=== PATIENT | female | born 1945 | race Caucasian/White ===

== ENCOUNTER 2020-10-28 07:47 | Outpatient (REF) | payer MEDICARE, SELFPAY | END 2020-10-28 07:48 | disposition home or self-care (01) | LOC: HO.LAB 07:47 | PROVIDERS: PCP Internal Medicine; Visit Provider Internal Medicine | DX: E03.9 Hypothyroidism, unspecified (principal) | CPT/HCPCS: 36415; 84443 ==

== ENCOUNTER 2021-12-24 08:01 | Outpatient (REF) | payer MEDICARE, SELFPAY ==
[2021-12-24 08:19] LABS: MANUAL DIFF FLAG NO
[2021-12-24 09:04] LABS: Basophils Absolute Auto 0.1 X10*3/uL (0.0-0.2); Basophils Percent Auto 0.6 % (0-2); Eosinophils Absolute Auto 0.5 X10*3/uL (0.0-0.4); Eosinophils Percent Auto 5.5 % (0-4); Hematocrit 43.3 % (37.0-47.0); Hemoglobin 13.8 g/dl (12.0-16.0); Imm Gran Abs Auto 0.03 X10*3/uL (0.00-0.03); Imm Gran Pct Auto 0.3 % (0.0-0.4); Lymphocytes Absolute Auto 2.6 X10*3/uL (1.2-4.9); Lymphocytes Percent Auto 27.4 % (20-40); Mean Corpuscular HGB Conc 31.9 g/dl (31.0-35.0); Mean Corpuscular Hemoglobin 27.8 pg (27.0-33.0); Mean Corpuscular Volume 87.3 fL (80.0-98.0); Mean Platelet Volume 9.3 fL (9.4-12.3); Monocytes Absolute Auto 0.9 X10*3/uL (0.1-1.2); Monocytes Percent Auto 9.8 % (2-11); Neutrophils Absolute Auto 5.3 x10*3/uL (2.0-8.3); Neutrophils Percent Auto 56.4 % (45-73); Platelet Count 222 X10*3/uL (160-400); Red Blood Count 4.96 X10*6/uL (4.20-5.50); Red Cell Distribution Width 13.1 % (11.0-16.0); White Blood Count 9.3 X10*3/uL (4.8-10.8)
[2021-12-24 09:37] LABS: Alanine Aminotransferase 13 U/L (0-31); Albumin Level 4.1 g/dL (3.5-5.0); Alkaline Phosphatase 82 U/L (39-117); Anion Gap 16 (12-20); Aspartate Amino Transferase 15 U/L (5-31); Bilirubin Total 0.3 mg/dL (0.0-1.0); Blood Urea Nitrogen 17 mg/dL (9-16); Calcium 9.7 mg/dL (8.4-10.2); Carbon Dioxide 27 mmol/L (22-29); Chloride 105 mmol/L (96-108); Cholesterol 216 mg/dL; Estimated Glomerular Filt Rate > 60; Glucose Fasting 82 mg/dL (60-99); HDL Cholesterol 39 mg/dL; LDL Cholesterol Calculated 120 mg/dl; Potassium 4.8 mmol/L (3.3-5.1); Sodium 143 mmol/L (135-145); Triglycerides 287 mg/dL
[2021-12-24 09:50] LABS: Thyroid Stimulating Hormone 1.02 uIU/mL (0.32-4.0)
== END 2021-12-24 08:02 | disposition home or self-care (01) ==
LOC: HO.LAB 08:01
PROVIDERS: PCP Internal Medicine; Visit Provider Internal Medicine
DX: Z00.00 Encounter for general adult medical examination without abnormal findings (principal); Z13.0 Encounter for screening for diseases of the blood and blood-forming organs and certain disorders involving the immune mechanism
CPT/HCPCS: 36415; 80053; 80061; 84443; 85025

== ENCOUNTER 2022-08-03 09:30 | Outpatient (REF) | payer MEDICARE, SELFPAY ==
[2022-08-03 09:41] LABS: MANUAL DIFF FLAG NO
[2022-08-03 10:04] LABS: Basophils Percent Auto 0.4 % (0-2); Eosinophils Absolute Auto 0.4 X10*3/uL (0.0-0.4); Eosinophils Percent Auto 4.3 % (0-4); Hematocrit 49.1 % (37.0-47.0); Hemoglobin 15.4 g/dl (12.0-16.0); Imm Gran Abs Auto 0.02 X10*3/uL (0.00-0.03); Imm Gran Pct Auto 0.2 % (0.0-0.4); Lymphocytes Absolute Auto 2.1 X10*3/uL (1.2-4.9); Lymphocytes Percent Auto 22.2 % (20-40); Mean Corpuscular HGB Conc 31.4 g/dl (31.0-35.0); Mean Corpuscular Hemoglobin 26.2 pg (27.0-33.0); Mean Corpuscular Volume 83.6 fL (80.0-98.0); Mean Platelet Volume 8.6 fL (9.4-12.3); Monocytes Absolute Auto 0.9 X10*3/uL (0.1-1.2); Monocytes Percent Auto 9.5 % (2-11); Neutrophils Absolute Auto 5.9 x10*3/uL (2.0-8.3); Neutrophils Percent Auto 63.4 % (45-73); Platelet Count 221 X10*3/uL (160-400); Red Blood Count 5.87 X10*6/uL (4.20-5.50); Red Cell Distribution Width 14.1 % (11.0-16.0); White Blood Count 9.4 X10*3/uL (4.8-10.8)
[2022-08-03 10:50] LABS: Alanine Aminotransferase 13 U/L (0-31); Albumin Level 4.4 g/dL (3.5-5.0); Alkaline Phosphatase 107 U/L (39-117); Anion Gap 13 (12-20); Aspartate Amino Transferase 15 U/L (5-31); Bilirubin Total 0.9 mg/dL (0.0-1.0); Blood Urea Nitrogen 13 mg/dL (9-16); Calcium 10.3 mg/dL (8.4-10.2); Carbon Dioxide 29 mmol/L (22-29); Chloride 105 mmol/L (96-108); Cholesterol 236 mg/dL; Estimated Glomerular Filt Rate > 60; Glucose Fasting 94 mg/dL (60-99); HDL Cholesterol 45 mg/dL; LDL Cholesterol Calculated 142 mg/dl; Potassium 4.9 mmol/L (3.3-5.1); Sodium 142 mmol/L (135-145); Total Protein 8.5 g/dL (6.5-8.0); Triglycerides 246 mg/dL
[2022-08-03 11:06] LABS: Thyroid Stimulating Hormone 1.06 uIU/mL (0.32-4.0)
== END 2022-08-03 09:31 | disposition home or self-care (01) ==
LOC: HO.LAB 09:30
PROVIDERS: PCP Internal Medicine; Visit Provider Internal Medicine
DX: E03.9 Hypothyroidism, unspecified (principal); D64.9 Anemia, unspecified; N28.9 Disorder of kidney and ureter, unspecified; E78.5 Hyperlipidemia, unspecified
CPT/HCPCS: 36415; 80053; 80061; 84443; 85025

== ENCOUNTER 2023-02-10 10:40 | Outpatient (AMB) | payer MEDICARE, SELFPAY ==
[2023-02-10 10:43] VITALS: BP 150/70; PULSE 67; O2SAT 97; BMI 26.5
--- NOTE | 2023-02-10 10:43 | A.OFFPC_ITS ---
Vital Signs 02/10/23 10:43 Height 5 ft 2 in Weight 145 lb BMI 26.5 BP 150/70 H Blood Pressure Location Lt brachial Position Sitting Pulse 67 Pulse Source Pulse Oximeter Pulse Oximetry (%) 97 Oxygen Delivery Method Room Air Intake Visit Reasons: PE Program Engineer Required: No Voice And Data Technician: Not Required per policy Accompanied by: Self / Same As Patient Allergies No Known Allergies Allergy (Verified 02/10/23 10:43) Medication List - Last Reconciled 02/10/23 by Jd Umanzor MD atenolol 25 mg PO BID levothyroxine (Synthroid) 100 mcg PO QAM tobramycin 0.3% 1 drp ophthalmic (eye) Q4H tramadol 50 mg PO Q6H PRN Tobacco use date assessed: 04/14/22 Fall risk assessment: 1 Fall in past year Last assessed Fall Risk: 02/10/23 Dental Screening Dental Screen Date: 02/10/23 Did you have a dental visit in the last 12 months?: No Did you have a dental problem in the last 6 months where you did not have access to dental care?: No Was dental information given to patient?: Patient has dentist HPI PE HPI Details HTN Hypothyroidism; stable PFSH Medical History Hypothyroidism Hypertension Surgical History History of thumb surgery Hx of elbow surgery Family History Father No problems noted. Mother No problems noted. Social History Housing: House Alcohol intake: never Patient Tobacco Use Status: Former Tobacco user Tobacco use type: Cigarette e-Cigarette/Vaping Use: Never Used Second Hand Smoke Exposure: No service: No Current occupational status: retired Cognitive needs: Yes Hearing needs: No Vision needs: No Questionnaire PHQ-9 Over the last 2 weeks, how often have you been bothered by any of the following problems? 1. Little interest or pleasure in doing things: not at all 2. Feeling down, depressed, or hopeless: not at all 3. Trouble falling or staying asleep, or sleeping too much: not at all 4. Feeling tired or having little energy: not at all 5. Poor appetite or overeating: not at all 6. Feeling bad about yourself - or that you are a failure or have let yourself or your family down: not at all 7. Trouble concentrating on things, such as reading the newspaper or watching television: not at all 8. Moving or speaking so slowly that other people could have noticed. Or the opposite - being so fidgety or restless that you have been moving around a lot more than usual: not at all 9. Thoughts that you would be better off or of hurting yourself in some way: not at all Total score: 0 Depression Screening Interpretation: Negative Depression Screening Done: Yes 18305 - PHQ-9 Billing: Yes Source: Developed by Drs. Vinnie Garcia, Kathleen Carrillo, Matthew Leong and colleagues, with an educational franklyn from [employer]. Thrive Questionnaire Date Thrive assessed: 04/14/22 AUDIT C Alcohol Use Questionnaire (AUDIT-C) 1. How often do you have a drink containing alcohol?: Never Total Score: 0 Score Reviewed/Action Taken: Yes CHAPITO-7 AMB Questionnaire CHAPITO-7 Date CHAPITO - 7 assessed: 02/10/23 Feeling nervous, anxious, or on edge: 0 = Not at all Not being able to stop or control worryin = Not at all Worrying too much about different things: 0 = Not at all Trouble relaxin = Not at all Being so restless that it is hard to sit still: 0 = Not at all Becoming easily annoyed or irritable: 0 = Not at all Feeling afraid as if something awful might happen: 0 = Not at all Total CHAPITO-7 score (0-4 normal; 5-9 mild; 10-14 moderate; 15-21 severe): 0 Source: Developed by Drs. Vinnie Garcia, Kathleen Carrillo, Matthew Leong and colleagues, with an educational franklyn from [employer]. CHAPITO-7 Assessment Billing CHAPITO-7 Assessment Tool: CHAPITO-7 Assessment 21685 Review of Systems Const Denies chills, Denies fatigue, Denies headache(s) and Denies weight loss Eyes Denies change in vision, Denies diplopia and Denies eye pain ENT Denies vertigo, Denies dizziness, Denies headache(s) and Denies nasal discharge Card Denies chest pain, Denies rapid heart rate and Denies dyspnea on exertion Resp Denies chest congestion, Denies cough, Denies pain with cough and Denies dyspnea on exertion GI Denies abdominal pain, Denies hematochezia and Denies change in bowel habits Musc Denies myalgias, Denies arthralgias and Denies joint swelling Skin/Breast Denies lesions and Denies unusual bruising Neuro Denies vertigo, Denies dizziness, Denies headache(s) and Denies focal weakness Endo Denies fatigue Physical exam (Primary Care) Vital Signs: Last Vital Signs Pulse 67 02/10/23 10:43 BP 150/70 H 02/10/23 10:43 Pulse Ox 97 02/10/23 10:43 Oxygen Delivery Method Room Air 02/10/23 10:43 BMI result Body Mass Index 26.5 Tobacco/Smoking Status: Tobacco use Status Tobacco use date assessed 04/14/22 02/10/23 10:44 Patient Tobacco Use Status Former Tobacco user 02/10/23 10:44 Tobacco use type Cigarette 02/10/23 10:44 e-Cigarette/Vaping Use Never Used 02/10/23 10:44 PHQ-9: PHQ-9 Score PHQ-9: Total score 0 02/10/23 10:54 Depression Screening Interpretation: Negative Thrive Assessment: Date of Thrive Assessment Date Thrive assessed 04/14/22 02/10/23 10:44 Const General: cooperative, healthy appearing and no acute distress Orientation/consciousness: oriented to person, oriented to place and oriented to time [facility] Head: Yes normal to inspection, Yes normocephalic and Yes atraumatic Mouth: Normal oral and palatal mucosa present and tongue normal Throat: Yes posterior oropharynx normal and Yes uvula midline Eyes General: appearance normal, both eyes and all related structures Neck Neck: Yes normal visual inspection, Yes full ROM and Yes no lymphadenopathy Thyroid: Thyroid normal Carotids: normal carotid upstroke Chest Chest palpation & inspection: normal inspection of the chest Resp Effort & Inspection: normal respiratory effort and able to speak in complete sentences Auscultation: clear to auscultation bilaterally Cardio Jugular venous distension: no JVD Palpation: normal PMI Rate: regular rate Rhythm: regular rhythm Heart sounds: S1 normal heart sound present and S2 normal heart sound present GI Inspection: Yes normal to inspection Palpation (GI): Soft to palpation and No hepatosplenomegaly present Auscultation: normal bowel sounds General: Yes no CVA tenderness Back/Spine/Pelvis Back: no CVA tenderness Skin General skin exam: no rashes or lesions noted Neuro General: oriented to person, oriented to place and oriented to time Extrem General: Yes normal to inspection and Yes full ROM Assessment and Plan Assessment & Plan (1) Physical exam: Code(s): Z00.00 - Encounter for general adult medical examination without abnormal findings Plan: stable; do labs (2) Hypothyroidism: Code(s): E03.9 - Hypothyroidism, unspecified Plan: stable; labs (3) Hypertension: Code(s): I10 - Essential (primary) hypertension Plan: same rx Orders: Orders Thyroid Stimulating Hormone Today E03.9 - Hypothyroidism, unspecified Coding Level of Care Code Est Pt Prev Care >65y(73160) Diagnoses Physical exam Z00.00 Hypothyroidism E03.9 Hypertension I10 Additional Codes CHAPITO-7 Assessment Billing - CHAPITO-7 Assessment Tool: CHAPITO-7 Assessment 94226 ([id number])
== END 2023-02-10 11:53 | disposition home or self-care (01) ==
PROVIDERS: PCP Internal Medicine; Visit Provider Internal Medicine
DX: Z00.00 Encounter for general adult medical examination without abnormal findings (principal); E03.9 Hypothyroidism, unspecified; I10 Essential (primary) hypertension
CPT/HCPCS: 99397

== ENCOUNTER 2023-05-05 09:03 | Outpatient (REF) | payer MEDICARE, SELFPAY ==
[2023-05-05 11:03] LABS: Thyroid Stimulating Hormone 0.92 uIU/mL (0.32-4.0)
== END 2023-05-05 09:04 | disposition home or self-care (01) ==
LOC: HO.LAB 09:03
PROVIDERS: PCP Internal Medicine; Visit Provider Internal Medicine
DX: E03.9 Hypothyroidism, unspecified (principal)
CPT/HCPCS: 36415; 84443

== ENCOUNTER 2023-11-03 10:55 | Outpatient (AMB) | payer MEDICARE, SELFPAY ==
[2023-11-03 10:57] VITALS: BP 142/84; PULSE 81; O2SAT 94; BMI 25.4
--- NOTE | 2023-11-03 10:57 | MHC.PC.OV ---
Vital Signs 11/03/23 10:57 Height 5 ft 2 in Weight 139 lb BMI 25.4 BP 142/84 H Blood Pressure Location Lt brachial Position Sitting Pulse 81 Pulse Source Pulse Oximeter Pulse Oximetry (%) 94 Oxygen Delivery Method Room Air Intake Visit Reasons: Cataract lt eye 11/08, rt eye 12/06 Fat Purification Worker Required: No Accompanied by: Self / Same As Patient Allergies No Known Allergies Allergy (Verified 11/03/23 10:57) Medication List - Last Reconciled 11/03/23 by Jd Umanzor MD atenolol 25 mg PO BID levothyroxine (Synthroid) 100 mcg PO QAM tobramycin 0.3% 1 drp ophthalmic (eye) Q4H tramadol 50 mg PO Q6H PRN Tobacco use date assessed: 11/03/23 Fall risk assessment: No Falls in past year Last assessed Fall Risk: 11/03/23 Dental Screening Dental Screen Date: 02/10/23 HPI Cataract lt eye 11/08, rt eye 12/06 HPI Details having bilateral cataract repairs; has controlled hypertension and hypothyroidism; no history of CAD PFSH Medical History Hypothyroidism Hypertension Surgical History History of thumb surgery Hx of elbow surgery Family History Father No problems noted. Mother No problems noted. Social History Housing: House Alcohol intake: never Patient Tobacco Use Status: Former Tobacco user Tobacco use type: Cigarette e-Cigarette/Vaping Use: Never Used Second Hand Smoke Exposure: No service: No Current occupational status: retired Cognitive needs: Yes Hearing needs: No Vision needs: No Questionnaire PHQ-9 Over the last 2 weeks, how often have you been bothered by any of the following problems? 1. Little interest or pleasure in doing things: not at all 2. Feeling down, depressed, or hopeless: not at all 3. Trouble falling or staying asleep, or sleeping too much: not at all 4. Feeling tired or having little energy: not at all 5. Poor appetite or overeating: not at all 6. Feeling bad about yourself - or that you are a failure or have let yourself or your family down: not at all 7. Trouble concentrating on things, such as reading the newspaper or watching television: not at all 8. Moving or speaking so slowly that other people could have noticed. Or the opposite - being so fidgety or restless that you have been moving around a lot more than usual: not at all 9. Thoughts that you would be better off or of hurting yourself in some way: not at all Total score: 0 Depression Screening Interpretation: Negative Depression Screening Done: Yes 76756 - PHQ-9 Billing: Yes Source: Developed by Drs. Vinnie Garcia, Kathleen Carrillo, Matthew Leong and colleagues, with an educational franklyn from [employer]. Thrive Questionnaire Date Thrive assessed: 11/03/23 I am a: Patient What is your living situation today?: I have a steady place to live THRIVE Score: 0 AUDIT C Alcohol Use Questionnaire (AUDIT-C) 1. How often do you have a drink containing alcohol?: Never Total Score: 0 Score Reviewed/Action Taken: Yes CHAPITO-7 AMB Questionnaire CHAPITO-7 Date CHAPITO - 7 assessed: 11/03/23 Feeling nervous, anxious, or on edge: 0 = Not at all Not being able to stop or control worryin = Not at all Worrying too much about different things: 0 = Not at all Trouble relaxin = Not at all Being so restless that it is hard to sit still: 0 = Not at all Becoming easily annoyed or irritable: 0 = Not at all Feeling afraid as if something awful might happen: 0 = Not at all Total CHAPITO-7 score (0-4 normal; 5-9 mild; 10-14 moderate; 15-21 severe): 0 Source: Developed by Drs. Vinnie Garcia, Kathleen Carrillo, Matthew Leong and colleagues, with an educational franklyn from [employer]. CHAPITO-7 Assessment Billing CHAPITO-7 Assessment Tool: CHAPITO-7 Assessment [id number] Review of Systems Const Denies chills, Denies fatigue, Denies headache(s) and Denies weight loss Eyes Denies change in vision, Denies diplopia and Denies eye pain ENT Denies vertigo, Denies dizziness, Denies headache(s) and Denies nasal discharge Card Denies chest pain, Denies rapid heart rate and Denies dyspnea on exertion Resp Denies chest congestion, Denies cough, Denies pain with cough and Denies dyspnea on exertion GI Denies abdominal pain, Denies hematochezia and Denies change in bowel habits Musc Denies myalgias, Denies arthralgias and Denies joint swelling Skin/Breast Denies lesions and Denies unusual bruising Neuro Denies vertigo, Denies dizziness, Denies headache(s) and Denies focal weakness Endo Denies fatigue Physical exam (Primary Care) Vital Signs: Last Vital Signs Pulse 81 11/03/23 10:57 BP 142/84 H 11/03/23 10:57 Pulse Ox 94 11/03/23 10:57 Oxygen Delivery Method Room Air 11/03/23 10:57 BMI result Body Mass Index 25.4 Tobacco/Smoking Status: Tobacco use Status Tobacco use date assessed 11/03/23 11/03/23 11:03 Patient Tobacco Use Status Former Tobacco user 11/03/23 11:03 Tobacco use type Cigarette 11/03/23 11:03 e-Cigarette/Vaping Use Never Used 11/03/23 11:03 PHQ-9: PHQ-9 Score PHQ-9: Total score 0 11/03/23 11:03 Depression Screening Interpretation: Negative Thrive Assessment: Date of Thrive Assessment Date Thrive assessed 11/03/23 11/03/23 11:03 Const General: cooperative, healthy appearing and no acute distress Orientation/consciousness: oriented to person, oriented to place and oriented to time [facility] [place] Head: Yes normal to inspection, Yes normocephalic and Yes atraumatic Mouth: Normal oral and palatal mucosa present and tongue normal Throat: Yes posterior oropharynx normal and Yes uvula midline Eyes General: appearance normal, both eyes and all related structures Neck Neck: Yes normal visual inspection, Yes full ROM and Yes no lymphadenopathy Thyroid: Thyroid normal Carotids: normal carotid upstroke Chest Chest palpation & inspection: normal inspection of the chest Resp Effort & Inspection: normal respiratory effort and able to speak in complete sentences Auscultation: clear to auscultation bilaterally Cardio Jugular venous distension: no JVD Palpation: normal PMI Rate: regular rate Rhythm: regular rhythm Heart sounds: S1 normal heart sound present and S2 normal heart sound present GI Inspection: Yes normal to inspection Palpation (GI): Soft to palpation and No hepatosplenomegaly present Auscultation: normal bowel sounds General: Yes no CVA tenderness Back/Spine/Pelvis Back: no CVA tenderness Skin General skin exam: no rashes or lesions noted Neuro General: oriented to person, oriented to place and oriented to time Extrem General: Yes normal to inspection and Yes full ROM Assessment and Plan Assessment & Plan (1) Preop exam for internal medicine: Code(s): Z01.818 - Encounter for other preprocedural examination Plan: low risk of cardiovascular complications; cleared for surgery (2) Hypothyroidism: Code(s): E03.9 - Hypothyroidism, unspecified Plan: stable; same rx (3) Hypertension: Code(s): I10 - Essential (primary) hypertension Plan: stable; same rx Coding Level of Care Code Est Pt Level 4 (34625) Diagnoses Preop exam for internal medicine Z01.818 Hypothyroidism E03.9 Hypertension I10 Additional Codes CHAPITO-7 Assessment Billing - CHAPITO-7 Assessment Tool: CHAPITO-7 Assessment 14888 ([id number])
== END 2023-11-03 12:33 | disposition home or self-care (01) ==
PROVIDERS: PCP Internal Medicine; Visit Provider Internal Medicine
DX: Z01.818 Encounter for other preprocedural examination (principal); E03.9 Hypothyroidism, unspecified; I10 Essential (primary) hypertension
CPT/HCPCS: 99214

== ENCOUNTER 2024-02-22 09:02 | Outpatient (AMB) | payer MEDICARE, SELFPAY ==
--- NOTE | 2024-02-22 09:05 | MHC.PC.OV ---
Vital Signs 02/22/24 09:06 Height 5 ft 2 in Weight 134 lb 4 oz BMI 24.6 BP 130/80 Blood Pressure Location Lt brachial Position Sitting Pulse 72 Pulse Source Pulse Oximeter Pulse Oximetry (%) 96 Oxygen Delivery Method Room Air Intake Visit Reasons: Annual exam Intake Note: Patient is here today for a physical. Wheel Cutter Required: No Correctional Substance Abuse Counselor: Not Required per policy Accompanied by: Self / Same As Patient Allergies No Known Allergies Allergy (Verified 02/22/24 09:06) Medication List - Last Reconciled 02/22/24 by Jd Umanzor MD atenolol 25 mg PO BID levothyroxine (Synthroid) 100 mcg PO QAM tobramycin 0.3% 1 drp ophthalmic (eye) Q4H tramadol 50 mg PO Q6H PRN Tobacco use date assessed: 02/22/24 Fall risk assessment: No Falls in past year Last assessed Fall Risk: 02/22/24 Dental Screening Dental Screen Date: 02/22/24 Did you have a dental visit in the last 12 months?: Yes Did you have a dental problem in the last 6 months where you did not have access to dental care?: No Was dental information given to patient?: Patient has dentist HPI Annual exam HPI Details hypertension and hypothyroidism on rx; doing well; compliant [facility] Medical History (Updated 11/03/23 @ 12:07 by Jd Umanzor MD) Hypothyroidism Hypertension Surgical History (Updated 02/22/24 @ 09:10 by LARA Frazier) History of cataract surgery History of thumb surgery Hx of elbow surgery Family History Father No problems noted. Mother No problems noted. Social History Housing: House Alcohol intake: never Patient Tobacco Use Status: Former Tobacco user Tobacco use type: Cigarette e-Cigarette/Vaping Use: Never Used Second Hand Smoke Exposure: No service: No Current occupational status: retired Cognitive needs: Yes (Cane) Hearing needs: No Vision needs: No Questionnaire Thrive Questionnaire Date Thrive assessed: 11/03/23 CHAPITO-7 AMB Questionnaire CHAPITO-7 Date CHAPITO - 7 assessed: 11/03/23 Source: Developed by Drs. Vinnie LKathleen Miller, Matthew Leong and colleagues, with an educational franklyn from [employer]. Review of Systems Const Denies chills, Denies fatigue, Denies headache(s) and Denies weight loss Eyes Denies change in vision, Denies diplopia and Denies eye pain ENT Denies vertigo, Denies dizziness, Denies headache(s) and Denies nasal discharge Card Denies chest pain, Denies rapid heart rate and Denies dyspnea on exertion Resp Denies chest congestion, Denies cough, Denies pain with cough and Denies dyspnea on exertion GI Denies abdominal pain, Denies hematochezia and Denies change in bowel habits Musc Denies myalgias, Denies arthralgias and Denies joint swelling Skin/Breast Denies lesions and Denies unusual bruising Neuro Denies vertigo, Denies dizziness, Denies headache(s) and Denies focal weakness Endo Denies fatigue Physical exam (Primary Care) Vital Signs: Last Vital Signs Pulse 72 02/22/24 09:06 BP 130/80 02/22/24 09:06 Pulse Ox 96 02/22/24 09:06 Oxygen Delivery Method Room Air 02/22/24 09:06 BMI result Body Mass Index 24.6 Tobacco/Smoking Status: Tobacco use Status Tobacco use date assessed 02/22/24 02/22/24 09:11 Patient Tobacco Use Status Former Tobacco user 02/22/24 09:11 Tobacco use type Cigarette 02/22/24 09:11 e-Cigarette/Vaping Use Never Used 02/22/24 09:11 Thrive Assessment: Date of Thrive Assessment Date Thrive assessed 11/03/23 02/22/24 09:11 Const General: cooperative, healthy appearing and no acute distress Orientation/consciousness: oriented to person, oriented to place and oriented to time [facility] Head: Yes normal to inspection, Yes normocephalic and Yes atraumatic Mouth: Normal oral and palatal mucosa present and tongue normal Throat: Yes posterior oropharynx normal and Yes uvula midline Eyes General: appearance normal, both eyes and all related structures Neck Neck: Yes normal visual inspection, Yes full ROM and Yes no lymphadenopathy Thyroid: Thyroid normal Carotids: normal carotid upstroke Chest Chest palpation & inspection: normal inspection of the chest Resp Effort & Inspection: normal respiratory effort and able to speak in complete sentences Auscultation: clear to auscultation bilaterally Cardio Jugular venous distension: no JVD Palpation: normal PMI Rate: regular rate Rhythm: regular rhythm Heart sounds: S1 normal heart sound present and S2 normal heart sound present GI Inspection: Yes normal to inspection Palpation (GI): Soft to palpation and No hepatosplenomegaly present Auscultation: normal bowel sounds General: Yes no CVA tenderness Back/Spine/Pelvis Back: no CVA tenderness Skin General skin exam: no rashes or lesions noted Neuro General: oriented to person, oriented to place and oriented to time Extrem General: Yes normal to inspection and Yes full ROM Coding Level of Care Code Est Pt Prev Care >65y(04575) Diagnoses Physical exam Z00.00 Hypertension I10 Hypothyroidism E03.9 Assessment & Plan Assessment & Plan (1) Physical exam: Code(s): Z00.00 - Encounter for general adult medical examination without abnormal findings Category: Medical Plan: stable; do labs (2) Hypertension: Code(s): I10 - Essential (primary) hypertension Category: Medical Plan: same rx (3) Hypothyroidism: Code(s): E03.9 - Hypothyroidism, unspecified Category: Medical Plan: same rx Orders: Orders Lipid Panel Today Z13.220 - Encounter for screening for lipoid disorders Complete Blood Count Auto Diff Today Z13.0 - Encounter for screening for diseases of the blood and blood-forming organs and certain disorders involving the immune mechanism Thyroid Stimulating Hormone Today Z13.29 - Encounter for screening for other suspected endocrine disorder Comprehensive [place]. Panel Fast Today Z13.9 - Encounter for screening, unspecified Medications: Refilled levothyroxine (Synthroid) 100 mcg PO QAM 90 tabs 4RF E03.9 - Hypothyroidism, unspecified atenolol 25 mg PO BID 180 tabs 8RF
[2024-02-22 09:06] VITALS: BP 130/80; PULSE 72; O2SAT 96; BMI 24.6
== END 2024-02-22 09:27 | disposition home or self-care (01) ==
PROVIDERS: PCP Internal Medicine; Visit Provider Internal Medicine
DX: Z00.00 Encounter for general adult medical examination without abnormal findings (principal); I10 Essential (primary) hypertension; E03.9 Hypothyroidism, unspecified

== ENCOUNTER → 2024-02-22 09:02 | Outpatient (BNVA) | payer MEDICARE, SELFPAY | PROVIDERS: PCP Internal Medicine; Visit Provider Internal Medicine | DX: Z00.00 Encounter for general adult medical examination without abnormal findings (principal); I10 Essential (primary) hypertension; E03.9 Hypothyroidism, unspecified | CPT/HCPCS: 99397 ==

== ENCOUNTER 2024-03-14 11:24 | Outpatient (AMB) | payer MEDICARE, SELFPAY ==
--- NOTE | 2024-03-14 12:10 | MHC.OFFWIV ---
Intake Vital Signs 03/14/24 12:12 Weight 134 lb 2 oz BP 130/82 Blood Pressure Location Lt brachial Position Sitting Pulse 74 Pulse Source Pulse Oximeter Temp 98.0 F Temp Source Oral Pulse Oximetry (%) 97 Oxygen Delivery Method Room Air Intake Visit Reasons: EP ?sinus infection Intake Note: Patient here for ?sinus infection, sinus pressure and head pressure which started yesterday. Patient Tobacco Use Status: Former Tobacco user Allergies No Known Allergies Allergy (Verified 03/14/24 12:13) Do you need a note to return to daycare/school/sports/work: No HPI HPI Comments History of Present Illness Details History - The patient is a 78-year-old female presenting with acute right sided sinus pain. - The current episode started with sore throat a week prior, progressing to sinus symptoms with significant mucus production over the last five days. - She notes severe tenderness and pressure in the right sinus, lacking fever or ear pain. - Previous infections were managed with [id number] medications; she states Flonase causes tachycardia. - Prefers Azithromycin over Augmentin due to a history of rash related to penicillin antibiotics. Physical Exam General: Cooperative, healthy appearing, comfortable and no acute distress Orientation/consciousness: Patient oriented x3 Limitations: No limitations Head: Normal to inspection Ears: Hearing grossly normal bilaterally, external ears normal, Cannot visualize TM as cerumen present bilaterally Nose: Normal external nose present, Normal nares present and No nasal discharge present Face and sinus: Normal facial exam and Right maxillary sinus tender Mouth: Normal oral and palatal mucosa present and moist mucous membranes Throat: Yes tonsils normal, Yes uvula midline. No exudates or erythema in the posterior oropharynx Eyes: Appearance normal, both eyes and all related structures Neck: Normal visual inspection Respiratory: Clear to auscultation bilaterally. Normal respiratory effort, able to speak in complete sentences, No respiratory distress, not tachypneic, no tripod positioning and no use of accessory muscles Cardiovascular: Regular rate and rhythm. Normal S1 and S2 Skin: No rashes or lesions noted Neuro: Patient oriented x3 Extremities: Normal to inspection and Yes no clubbing, cyanosis or edema PFSH Medical History (Updated 03/14/24 @ 12:38 by Geni Lorenz PA-C) Hypothyroidism Hypertension Surgical History (Updated 02/22/24 @ 09:10 by LARA Frazier) History of cataract surgery History of thumb surgery Hx of elbow surgery Family History Father No problems noted. Mother No problems noted. Social History Housing: House Alcohol intake: never Patient Tobacco Use Status: Former Tobacco user Tobacco use type: Cigarette e-Cigarette/Vaping Use: Never Used Second Hand Smoke Exposure: No service: No Current occupational status: retired Cognitive needs: Yes (Cane) Hearing needs: No Vision needs: No Review of Systems Const All systems reviewed & are unremarkable except as noted in HPI and below Physical Exam Vital Signs: Last Vital Signs Temp 98.0 F 03/14/24 12:12 Pulse 74 03/14/24 12:12 BP 130/82 03/14/24 12:12 Pulse Ox 97 03/14/24 12:12 Oxygen Delivery Method Room Air 03/14/24 12:12 Assessment & Plan Assessment & Plan (1) Sinusitis, acute: Code(s): J01.90 - Acute sinusitis, unspecified Qualifiers: Sinusitis location: maxillary Recurrence: non-recurrent Qualified Code(s): J01.00 - Acute maxillary sinusitis, unspecified Plan: Plan For the management of acute sinusitis, Azithromycin Z-Marcus was prescribed due to an adverse reaction history with penicillin-based antibiotics. And pt states Z-Marcus works best for her with a sinus infection. A saline rinse was recommended for symptomatic relief, with instructions to avoid using tap water. The prescription was sent to the patient's pharmacy, [facility], for her convenience. Patient was informed and verbally consented to the use of an ambient scribe for clinic note documentation during this visit Medications: New azithromycin For 250 mg dose pack: take 500 mg today (day 1), then 250 mg for 4 days (days 2-5) PO 6 tabs 0RF Coding Level of Care Code New Pt Level 3 (49547) Diagnoses Acute non-recurrent maxillary sinusitis J01.00 Sinusitis location: maxillary Recurrence: non-recurrent
[2024-03-14 12:12] VITALS: BP 130/82; PULSE 74; TEMP 36.7; O2SAT 97
== END 2024-03-14 13:18 | disposition home or self-care (01) ==
PROVIDERS: PCP Internal Medicine; Visit Provider Physician Assistant
DX: J01.00 Acute maxillary sinusitis, unspecified (principal)

== ENCOUNTER → 2024-03-14 11:24 | Outpatient (BNVA) | payer MEDICARE, SELFPAY | PROVIDERS: PCP Internal Medicine; Visit Provider Physician Assistant | DX: J01.00 Acute maxillary sinusitis, unspecified (principal) | CPT/HCPCS: 99202 ==

== ENCOUNTER 2024-04-26 09:18 | Outpatient (REF) | payer MEDICARE, SELFPAY ==
[2024-04-26 09:45] LABS: MANUAL DIFF FLAG NO
--- OUTSIDE RECORDS SUMMARY | 2024-04-26 10:26 | XMS_ITS | Clinical Summary ---
Author Organization [facility] ity Address [address] [place] [address] Care Team Providers Care Investor Relations Specialist Name Role Phone Unavailable Primary Care Provider Unavailabl e Social History Tobacco Use Types Packs/Day Years Used Date Smoking Tobacco: Never Assessed Comments Unknown Sex and Gender Information Value Date Recorded Sex Assigned at Not on file Legal Sex Female 9:24 AM EST Gender Identity Not on file Sexual Orientation Not on file Plan of Treatment Health Maintenance Due Date Last Done Comments DTaP,Tdap,and Td Vaccines (1 - Tdap) 1965 Pneumococcal Vaccine: 50+ Ye ars (1 of 1 - PCV) 1996 Zoster Vaccines (1 of 2) 1996 RSV Immunization Patients 60 + Years Old (1 - 1-dose 75+ series) 2021 Depression Screening 02/01/2022 Falls Risk Assessment 02/01/2022 Hepatitis C Screening 02/01/2022 Osteoporosis Screening (Bone Density Screening) 02/01/2022 Social Influencers of Health Screening 02/01/2022 COVID-19 Vaccine ( - 2023-2 5 season) 2023 Influenza Vaccine (#1) 2023 HIB Vaccines Aged Out No longer eligi ble based on patient's age to complete this topic HPV Vaccines Aged Out No longer eligi ble based on patient's age to complete this topic Hepatitis A Vaccines Aged Out No long er eligible based on patient's age to complete this topic Hepatitis B Vaccines Aged Out No long er eligible based on patient's age to complete this topic IPV Vaccines Aged Out No longer eligi ble based on patient's age to complete this topic MMR Vaccines Aged Out No longer eligi ble based on patient's age to complete this topic Meningococcal ACWY Vaccine Aged Out N o longer eligible based on patient's age to complete this topic Meningococcal B Vacine Aged Out No lo nger eligible based on patient's age to complete this topic RSV Immunization Patients Un jannette 20 months Aged Out No longer eligible b ased on patient's age to complete this topic Varicella Vaccines Aged Out No longer eligible based on patient's age to complete this topic Advance Directives Documents on File Type Date Recorded Patient Resource Development Director Expl anation Health Care Decision (hx) 03/13/2022 KAYLAN BARRETO DIRECTIVE
[2024-04-26 10:45] LABS: Basophils Absolute Auto 0.1 X10*3/uL (0.0-0.2); Basophils Percent Auto 0.6 % (0-2); Eosinophils Absolute Auto 0.4 X10*3/uL (0.0-0.4); Eosinophils Percent Auto 3.7 % (0-4); Hematocrit 43.5 % (37.0-47.0); Hemoglobin 14.1 g/dl (12.0-16.0); Imm Gran Abs Auto 0.03 X10*3/uL (0.00-0.03); Imm Gran Pct Auto 0.3 % (0.0-0.4); Lymphocytes Absolute Auto 2.4 X10*3/uL (1.2-4.9); Lymphocytes Percent Auto 24.8 % (20-40); Mean Corpuscular HGB Conc 32.4 g/dl (31.0-35.0); Mean Corpuscular Volume 83.3 fL (80.0-98.0); Mean Platelet Volume 9.1 fL (9.4-12.3); Monocytes Absolute Auto 0.8 X10*3/uL (0.1-1.2); Monocytes Percent Auto 8.2 % (2-11); Neutrophils Absolute Auto 6.1 x10*3/uL (2.0-8.3); Neutrophils Percent Auto 62.4 % (45-73); Platelet Count 253 X10*3/uL (160-400); Red Blood Count 5.22 X10*6/uL (4.20-5.50); Red Cell Distribution Width 13.6 % (11.0-16.0); White Blood Count 9.7 X10*3/uL (4.8-10.8)
[2024-04-26 11:17] LABS: Alanine Aminotransferase 12 U/L (0-31); Albumin Level 3.7 g/dL (3.5-5.0); Alkaline Phosphatase 90 U/L (39-117); Anion Gap 12 (12-20); Aspartate Amino Transferase 19 U/L (5-31); Bilirubin Total 0.5 mg/dL (0.0-1.0); Blood Urea Nitrogen 13 mg/dL (9-16); Calcium 9.6 mg/dL (8.4-10.2); Carbon Dioxide 26 mmol/L (22-29); Chloride 108 mmol/L (96-108); Cholesterol 183 mg/dL (<200); Estimated Glomerular Filt Rate > 60; Glucose Fasting 82 mg/dL (60-99); HDL Cholesterol 44 mg/dL (>40); LDL Cholesterol Calculated 115 mg/dL (<100); Potassium 4.5 mmol/L (3.3-5.1); Sodium 141 mmol/L (135-145); Total Protein 8.8 g/dL (6.5-8.0); Triglycerides 120 mg/dL (<150)
[2024-04-26 11:36] LABS: Thyroid Stimulating Hormone 0.27 uIU/mL (0.32-4.0)
== END 2024-04-26 09:19 | disposition home or self-care (01) ==
LOC: HO.LAB 09:18
PROVIDERS: PCP Internal Medicine; Visit Provider Internal Medicine
DX: Z13.220 Encounter for screening for lipoid disorders (principal); Z13.29 Encounter for screening for other suspected endocrine disorder; Z13.0 Encounter for screening for diseases of the blood and blood-forming organs and certain disorders involving the immune mechanism; Z13.9 Encounter for screening, unspecified
CPT/HCPCS: 36415; 80053; 80061; 84443; 85025

== ENCOUNTER 2024-05-08 10:44 | Outpatient (AMB) | payer MEDICARE, SELFPAY ==
--- NOTE | 2024-05-08 10:45 | MHC.PC.OV ---
Vital Signs 05/08/24 10:48 Height 5 ft 2 in Weight 133 lb 6 oz BMI 24.4 BP 140/76 H Blood Pressure Location Lt brachial Position Sitting Pulse 69 Pulse Source Pulse Oximeter Temp 97.3 F Temp Source Temporal Artery Scan Pulse Oximetry (%) 96 Oxygen Delivery Method Room Air Intake Visit Reasons: follow up Intake Note: Patient is here to follow up on HTN, Hypothyroidism. Customer Service Supervisor Required: No Vocal Teacher: Not Required per policy Accompanied by: Self / Same As Patient Allergies No Known Allergies Allergy (Verified 05/08/24 10:47) Medication List - Last Reconciled 05/08/24 by Jd Umanzor MD atenolol 25 mg PO BID levothyroxine (Synthroid) 100 mcg PO QAM Tobacco use date assessed: 05/08/24 Fall risk assessment: No Falls in past year Last assessed Fall Risk: 05/08/24 Dental Screening Dental Screen Date: 05/08/24 Did you have a dental visit in the last 12 months?: No Did you have a dental problem in the last 6 months where you did not have access to dental care?: No Was dental information given to patient?: No HPI follow up HPI Details HTN and hypothyroidism on rx; doing well; compliant [facility] Medical History (Updated 03/14/24 @ 12:38 by Geni Lorenz PA-C) Hypothyroidism Hypertension Surgical History History of cataract surgery History of thumb surgery Hx of elbow surgery Family History (Updated 05/08/24 @ 10:46 by LARA Frazier) Father No problems noted. Mother No problems noted. Social History Housing: House Alcohol intake: never Patient Tobacco Use Status: Former Tobacco user Tobacco use type: Cigarette e-Cigarette/Vaping Use: Never Used Second Hand Smoke Exposure: Yes service: No Current occupational status: retired Cognitive needs: Yes (Cane) Hearing needs: No Vision needs: No Questionnaire PHQ-9 Over the last 2 weeks, how often have you been bothered by any of the following problems? 1. Little interest or pleasure in doing things: not at all 2. Feeling down, depressed, or hopeless: not at all 3. Trouble falling or staying asleep, or sleeping too much: not at all 4. Feeling tired or having little energy: not at all 5. Poor appetite or overeating: not at all 6. Feeling bad about yourself - or that you are a failure or have let yourself or your family down: not at all 7. Trouble concentrating on things, such as reading the newspaper or watching television: not at all 8. Moving or speaking so slowly that other people could have noticed. Or the opposite - being so fidgety or restless that you have been moving around a lot more than usual: not at all 9. Thoughts that you would be better off or of hurting yourself in some way: not at all Total score: 0 Depression Screening Interpretation: Negative Depression Screening Done: Yes Source: Developed by Drs. Vinnie Garcia, Kathleen Carrillo, Matthew Leong and colleagues, with an educational franklyn from [employer]. Thrive Questionnaire Date Thrive assessed: 05/08/24 I am a: Patient What is your living situation today?: I have a steady place to live Within the past 12 months, did the food you bought not last and you didn't have the money to get more?: Never true Within the past 12 months, did you worry whether your food would run out before you got money to buy more?: Never true Do you have trouble paying for medicines?: No Do you have trouble getting transportation to medical appointments?: No Do you have trouble paying your heating and electricity bill?: No Do you have trouble taking care of your child, family member or friend?: No Do you have trouble with day-to-day activities such as bathing, preparing meals, shopping, managing finances, etc.?: No Are you currently unemployed and looking for a job?: No Are you interested in more education?: No Please select the resources that you would like help with: None Currently or been in a relationship where the following occur: No concerns reported THRIVE Score: 0 AUDIT C Alcohol Use Questionnaire (AUDIT-C) 1. How often do you have a drink containing alcohol?: Never Total Score: 0 CHAPITO-7 AMB Questionnaire CHAPITO-7 Date CHAPITO - 7 assessed: 05/08/24 Feeling nervous, anxious, or on edge: 0 = Not at all Not being able to stop or control worryin = Not at all Worrying too much about different things: 0 = Not at all Trouble relaxin = Not at all Being so restless that it is hard to sit still: 0 = Not at all Becoming easily annoyed or irritable: 0 = Not at all Feeling afraid as if something awful might happen: 0 = Not at all Total CHAPITO-7 score (0-4 normal; 5-9 mild; 10-14 moderate; 15-21 severe): 0 Source: Developed by Drs. Vinnie Garcia, Kathleen Carrillo, Matthew Leong and colleagues, with an educational franklyn from [employer]. Review of Systems Const Denies chills, Denies headache(s) and Denies weight loss ENT Denies headache(s) Card Denies chest pain, Denies syncope, Denies irregular heart rhythm and Denies dyspnea Resp Denies chest congestion, Denies cough and Denies dyspnea GI Denies abdominal pain, Denies change in stool character, Denies nausea and Denies vomiting Musc Denies deformity and Denies joint swelling Neuro Denies syncope and Denies headache(s) Physical exam (Primary Care) Vital Signs: Last Vital Signs Temp 97.3 F 05/08/24 10:48 Pulse 69 05/08/24 10:48 BP 140/76 H 05/08/24 10:48 Pulse Ox 96 05/08/24 10:48 Oxygen Delivery Method Room Air 05/08/24 10:48 BMI result Body Mass Index 24.4 Tobacco/Smoking Status: Tobacco use Status Tobacco use date assessed 05/08/24 05/08/24 10:53 Patient Tobacco Use Status Former Tobacco user 05/08/24 10:53 Tobacco use type Cigarette 05/08/24 10:53 e-Cigarette/Vaping Use Never Used 05/08/24 10:53 PHQ-9: PHQ-9 Score PHQ-9: Total score 0 05/08/24 10:53 Depression Screening Interpretation: Negative Thrive Assessment: Date of Thrive Assessment Date Thrive assessed 05/08/24 05/08/24 10:53 Currently or been in a relationship where the following occur: No concerns reported Const General: cooperative, comfortable, no acute distress and alert Neck Neck: Yes no lymphadenopathy Thyroid: Thyroid normal Resp Effort & Inspection: normal respiratory effort Auscultation: clear to auscultation bilaterally Percussion: percussion normal Cardio Jugular venous distension: no JVD Palpation: normal PMI Rate: regular rate Rhythm: regular rhythm Heart sounds: S1 normal heart sound present and S2 normal heart sound present GI Inspection: Yes normal to inspection Palpation (GI): No hepatosplenomegaly present Skin General skin exam: no rashes or lesions noted Extrem General: Yes no clubbing, cyanosis or edema Coding Level of Care Code Est Pt Level 3 (34419) Diagnoses Hypertension I10 Assessment & Plan Assessment & Plan (1) Hypertension: Code(s): I10 - Essential (primary) hypertension Category: Medical Plan: stable; same rx
[2024-05-08 10:48] VITALS: BP 140/76; PULSE 69; TEMP 36.3; O2SAT 96; BMI 24.4
--- OUTSIDE RECORDS SUMMARY | 2024-05-08 12:09 | XMS_ITS | Clinical Summary ---
Author Organization [facility] ity Address [address] [place] [address] Care Team Providers [facility] [place] [facility] Demonstration Agent Name Role Phone Unavailable Primary Care Provider [...] Documents on File Type Date Recorded Patient Transmission Mechanic Expl anation Health Care Decision (hx) 03/13/2022 KAYLAN BARRETO DIRECTIVE
== END 2024-05-08 11:06 | disposition home or self-care (01) ==
PROVIDERS: PCP Internal Medicine; Visit Provider Internal Medicine
DX: I10 Essential (primary) hypertension (principal)

== ENCOUNTER → 2024-05-08 10:44 | Outpatient (BNVA) | payer MEDICARE, SELFPAY | PROVIDERS: PCP Internal Medicine; Visit Provider Internal Medicine | DX: I10 Essential (primary) hypertension (principal) | CPT/HCPCS: 99212 ==

== ENCOUNTER 2024-07-06 09:55 | Outpatient (AMB) | payer MEDICARE, SELFPAY ==
[2024-07-06 10:00] VITALS: BP 154/102; PULSE 68; RESP 18; TEMP 36.9; O2SAT 96; BMI 24.6
--- NOTE | 2024-07-06 10:00 | MHC.PC.OV ---
Vital Signs 07/06/24 10:00 07/06/24 10:05 Height 5 ft 2 in Weight 134 lb 6.4 oz BMI 24.6 BP 154/102 H 148/96 H Blood Pressure Location Lt brachial Lt brachial Position Sitting Sitting Respiration 18 Pulse 68 Pulse Source Pulse Oximeter Temp 98.4 F Temp Source Oral Pulse Oximetry (%) 96 Oxygen Delivery Method Room Air Intake Visit Reasons: discuss Lorazepam Intake Note: Patient is here to follow-up after a visit the emergency department at [facility] in [place], [place] on 06/25/2024. Residential Program Worker Required: No Accompanied by: Daughter Allergies No Known Allergies Allergy (Verified 07/06/24 10:24) Medication List - Last Reconciled 07/06/24 by ENOC Becerril atenolol 25 mg PO BID levothyroxine (Synthroid) 100 mcg PO QAM Tobacco use date assessed: 07/06/24 Fall risk assessment: No Falls in past year Last assessed Fall Risk: 07/06/24 Dental Screening Dental Screen Date: 07/06/24 Did you have a dental visit in the last 12 months?: No Did you have a dental problem in the last 6 months where you did not have access to dental care?: No Was dental information given to patient?: No HPI discuss Lorazepam HPI Details The patient is a 79-year-old female presenting with concerns regarding her blood pressure management post-recovery from left femur and left wrist fractures sustained in March 2022. Previously well-maintained on atenolol 50 mg BID, she experienced hypotensive episodes during rehabilitation, requiring dosage modifications. More recently, her readings have spiked despite dietary changes. The patient also reports episodic anxiety exacerbated by personal and environmental stressors, reports that while she was in the rehab her insurance coverage attempted to take her house. Reports that she had to sell her house to her daughter and her to prevent from losing it. The patient reports that even now she is still living in the house, she still feels like she lost it. Reports that her anxiety level has been peaking and the only thing that helps her anxiety is lorazepam, which she reports using sparingly for relief. She seeks clarification on her current pain management regimen, primarily relying on Advil, and expresses concern over its potential impact on her blood pressure and renal health. Additionally, she notes low TSH levels detected in April, which require reassessment due to potential implications on hyperthyroidism which could be impacting her blood pressure as well. [facility] Medical History (Updated 07/06/24 @ 21:19 by ENOC Becerril) Hypothyroidism Hypertension Surgical History History of cataract surgery History of thumb surgery Hx of elbow surgery Family History Father No problems noted. Mother No problems noted. Social History Housing: House Alcohol intake: never Patient Tobacco Use Status: Former Tobacco user Tobacco use type: Cigarette e-Cigarette/Vaping Use: Never Used Second Hand Smoke Exposure: Yes service: No Current occupational status: retired Cognitive needs: Yes (Cane) Hearing needs: No Vision needs: No Questionnaire PHQ-9 Over the last 2 weeks, how often have you been bothered by any of the following problems? 1. Little interest or pleasure in doing things: not at all 2. Feeling down, depressed, or hopeless: not at all 3. Trouble falling or staying asleep, or sleeping too much: not at all 4. Feeling tired or having little energy: not at all 5. Poor appetite or overeating: not at all 6. Feeling bad about yourself - or that you are a failure or have let yourself or your family down: not at all 7. Trouble concentrating on things, such as reading the newspaper or watching television: not at all 8. Moving or speaking so slowly that other people could have noticed. Or the opposite - being so fidgety or restless that you have been moving around a lot more than usual: not at all 9. Thoughts that you would be better off or of hurting yourself in some way: not at all Total score: 0 Depression Screening Interpretation: Negative Depression Screening Done: Yes Source: Developed by Drs. Vinnie Garcia, Kathleen Carrillo, Matthew Leong and colleagues, with an educational franklyn from [employer]. Thrive Questionnaire Date Thrive assessed: 07/06/24 I am a: Patient What is your living situation today?: I have a steady place to live Within the past 12 months, did the food you bought not last and you didn't have the money to get more?: I choose not to answer this question Within the past 12 months, did you worry whether your food would run out before you got money to buy more?: I choose not to answer this question Do you have trouble paying for medicines?: I choose not to answer this question Do you have trouble getting transportation to medical appointments?: I choose not to answer this question Do you have trouble paying your heating and electricity bill?: I choose not to answer this question Do you have trouble taking care of your child, family member or friend?: I choose not to answer this question Do you have trouble with day-to-day activities such as bathing, preparing meals, shopping, managing finances, etc.?: I choose not to answer this question Are you currently unemployed and looking for a job?: I choose not to answer this question Are you interested in more education?: I choose not to answer this question Please select the resources that you would like help with: None Currently or been in a relationship where the following occur: I choose not to answer THRIVE Score: 0 AUDIT C Alcohol Use Questionnaire (AUDIT-C) 1. How often do you have a drink containing alcohol?: Never Total Score: 0 Score Reviewed/Action Taken: No CHAPITO-7 AMB Questionnaire CHAPITO-7 Date CHAPITO - 7 assessed: 07/06/24 Feeling nervous, anxious, or on edge: 0 = Not at all Not being able to stop or control worryin = Not at all Worrying too much about different things: 0 = Not at all Trouble relaxin = Several days Being so restless that it is hard to sit still: 0 = Not at all Becoming easily annoyed or irritable: 0 = Not at all Feeling afraid as if something awful might happen: 0 = Not at all Total CHAPITO-7 score (0-4 normal; 5-9 mild; 10-14 moderate; 15-21 severe): 1 Source: Developed by Drs. Vinnie Garcia, Kathleen Carrillo, Matthew Leong and colleagues, with an educational franklyn from [employer]. Review of Systems Const Denies headache(s) Eyes Denies loss of vision ENT Denies vertigo, Denies dizziness, Denies headache(s) and Denies sore throat Card Denies chest pain, Denies leg edema and Denies lightheadedness Resp Denies cough, Denies hemoptysis and Denies wheezing GI Denies abdominal pain, Denies melena, Denies constipation, Denies diarrhea and Denies vomiting Denies urinary frequency, Denies dysuria and Denies urinary urgency Musc Reports arthralgias (Left hip and wrist), Denies joint swelling, Denies numbness and Denies tingling Neuro Denies Abnormal speech present, Denies behavioral changes, Denies vertigo, Denies dizziness, Denies headache(s), Denies loss of vision, Denies memory loss, Denies numbness and Denies tingling Psych Reports anxiety, Denies behavioral changes, Denies depression, Denies memory loss and Denies panic attacks Nima/Lymph Denies easy bleeding and Denies easy bruising Aller/Immun Denies wheezing Physical exam (Primary Care) Vital Signs: Last Vital Signs Temp 98.4 F 07/06/24 10:00 Pulse 68 07/06/24 10:00 Resp 18 07/06/24 10:00 BP 154/102 H 07/06/24 10:00 Pulse Ox 96 07/06/24 10:00 Oxygen Delivery Method Room Air 07/06/24 10:00 BMI result Body Mass Index 24.6 Tobacco/Smoking Status: Tobacco use Status Tobacco use date assessed 07/06/24 07/06/24 10:05 Patient Tobacco Use Status Former Tobacco user 07/06/24 10:05 Tobacco use type Cigarette 07/06/24 10:05 e-Cigarette/Vaping Use Never Used 07/06/24 10:05 PHQ-9: PHQ-9 Score PHQ-9: Total score 0 07/06/24 11:02 Depression Screening Interpretation: Negative Thrive Assessment: Date of Thrive Assessment Date Thrive assessed 07/06/24 07/06/24 10:05 Currently or been in a relationship where the following occur: I choose not to answer Const General: healthy appearing, no acute distress, alert and awake Nutritional Appearance: well nourished Orientation/consciousness: oriented to person, oriented to place and oriented to time HENMT Ears: TM's normal bilaterally General nose exam: Normal nasal mucous membranes and turbinates present Eyes Conjunctivae: conjunctivae normal Sclerae: sclerae normal Pupils: Equal, round and reactive pupils present Neck Neck: Yes no lymphadenopathy and Yes no JVD Thyroid: Thyroid normal Carotids: no bruits Resp Effort & Inspection: normal respiratory effort and not tachypneic Auscultation: no crackles, no rales, no rhonchi and no wheezes Cardio Rate: regular rate Rhythm: regular rhythm Heart sounds: no murmurs and normal S1 and S2 GI Palpation (GI): Soft to palpation, nontender, no hepatomegaly and no splenomegaly Auscultation: normal bowel sounds Back/Spine/Pelvis Thoracic/Lumbar Spine: No thoracic spinal tenderness and lumbar spinal tenderness Skin General skin exam: no rashes or lesions noted and dry skin Neuro General: oriented to person, oriented to place and oriented to time Cranial nerves: Yes Equal, round and reactive pupils present Speech: No Abnormal speech present Gait exam (Neuro): Normal gait present Motor exam (neuro): no tremor noted Extrem Right upper extremity: full ROM Left upper extremity: full ROM and wrist (Post fracture, mild tenderness) Right lower extremity: full ROM; no edema Left lower extremity: full ROM and hip/thigh Details: no tenderness; no edema Psych Mental Status: mental status grossly normal Speech and movement: Normal speech and movement present Affect: normal affect Attitude: cooperative Thought process: Normal thought process present Coding Level of Care Code Est Pt Level 3 (62721) Diagnoses Hypertension, unspecified type I10 Hypertension type: unspecified Hypothyroidism, unspecified type E03.9 Hypothyroidism type: unspecified Closed fracture of left hip with routine healing, subsequent encounter S72.002D Encounter type: subsequent encounter Fracture type: closed Fracture healing: with routine healing Low TSH level R79.89 Anxiety F41.9 Time Spent (min) 34 Assessment & Plan Assessment & Plan (1) Hypertension: Code(s): I10 - Essential (primary) hypertension Category: Medical Qualifiers: Hypertension type: unspecified Qualified Code(s): I10 - Essential (primary) hypertension (2) Hypothyroidism: Code(s): E03.9 - Hypothyroidism, unspecified Category: Medical Qualifiers: Hypothyroidism type: unspecified Qualified Code(s): E03.9 - Hypothyroidism, unspecified (3) Hip fracture, left: Code(s): S72.002A - Fracture of unspecified part of neck of left femur, initial encounter for closed fracture Category: Medical Qualifiers: Encounter type: subsequent encounter Fracture type: closed Fracture healing: with routine healing Qualified Code(s): S72.002D - Fracture of unspecified part of neck of left femur, subsequent encounter for closed fracture with routine healing (4) Low TSH level: Code(s): R79.89 - Other specified abnormal findings of blood chemistry Category: Medical (5) Anxiety: Code(s): F41.9 - Anxiety disorder, unspecified Category: Medical Plan In managing the patient's essential hypertension, I am recommending a possible adjustment of atenolol to 50 mg twice daily, monitoring blood pressure at home, and rechecking thyroid function to evaluate the need for modifying thyroid medication. For anxiety, lorazepam at a low, occasional dose is considered appropriate, with an emphasis on reviewing alternative agents for anxiety. Pain management will focus on reducing Advil intake due to potential risks and exploring physical therapy options. Follow-up is scheduled in three months with interim lab checks for thyroid function. Patient was informed and verbally consented to the use of an ambient scribe for clinic note documentation during this visit. Orders: Orders Triiodothyronine T3 Free Today R7 - Other specified abnormal findings of blood chemistry TSH reflex Free T4 Today R7.89 - Other specified abnormal findings of blood chemistry Free T4 (Free Thyroxine) Today R7.89 - Other specified abnormal findings of blood chemistry Iodine, Serum/Plasma Today R7. - Other specified abnormal findings of blood chemistry Triiodothyronine T3 Total Today R7.89 - Other specified abnormal findings of blood chemistry Triiodothyronine T3 Reverse Today R7.89 - Other specified abnormal findings of blood chemistry Complete Blood Count Auto Diff Today E03.9 - Hypothyroidism, unspecified, I10 - Essential (primary) hypertension, R7.89 - Other specified abnormal findings of blood chemistry Comprehensive Met. Panel Today E03.9 - Hypothyroidism, unspecified, I10 - Essential (primary) hypertension, R7.89 - Other specified abnormal findings of blood chemistry Medications: New atenolol 50 mg PO BID 30 tabs 2RF lorazepam 1 to 2 of 0.25 mg as needed at bedtime 0.25 mg (1/2 x 0.5 mg) PO BEDTIME PRN 30 tabs 0RF anxiety
[2024-07-06 10:05] VITALS: BP 148/96
--- OUTSIDE RECORDS SUMMARY | 2024-07-06 10:51 | XMS_ITS | Clinical Summary ---
Author Organization [facility] ity Address [address] [place] [address] Care Team Providers Care Office Mail Clerk Name Role Phone Unavailable Primary Care Provider [...] Vaccines (1 of 2) 1996 RSV Immunization Adult Patie nts (1 - 1-dose 75+ series) 2021 Depression Screening 02/01/2022 Falls Risk Assessment 02/01/2022 Hepatitis C Screening 02/01/2022 Osteoporosis Screening (Bone Density Screening) 02/01/2022 Social Influencers of Health Screening 02/01/2022 COVID-19 Vaccine ( - 2023-2 5 season) 2023 Influenza Vaccine (Season Ended) 2024 HIB Vaccines Aged Out No longer eligi [...] age to complete this topic Meningococcal B Vaccine Aged Out No l onger eligible based on patient's age to complete this topic RSV Immunization Patients Un jannette 20 months Aged Out No longer eligible b ased on patient's age to complete this topic Varicella Vaccines Aged Out No longer eligible based on patient's age to complete this topic Advance Directives Documents on File Type Date Recorded Patient Environmental Marketing Representative Expl anation Health Care Decision (hx) 03/13/2022 KAYLAN BARRETO DIRECTIVE
== END 2024-07-06 11:09 | disposition home or self-care (01) ==
LOC: HO.HMCH 09:56
DX: I10 Essential (primary) hypertension (principal); E03.9 Hypothyroidism, unspecified; S72.002D Fracture of unspecified part of neck of left femur, subsequent encounter for closed fracture with routine healing; R79.89 Other specified abnormal findings of blood chemistry; F41.9 Anxiety disorder, unspecified

== ENCOUNTER 2024-07-06 09:55 | Outpatient (REF) | payer MEDICARE, SELFPAY ==
[2024-07-06 11:43] LABS: MANUAL DIFF FLAG NO
[2024-07-06 12:10] LABS: Basophils Absolute Auto 0.1 X10*3/uL (0.0-0.2); Basophils Percent Auto 0.8 % (0-2); Eosinophils Absolute Auto 0.7 X10*3/uL (0.0-0.4); Eosinophils Percent Auto 6.8 % (0-4); Hematocrit 43.1 % (37.0-47.0); Hemoglobin 13.7 g/dl (12.0-16.0); Imm Gran Abs Auto 0.03 X10*3/uL (0.00-0.03); Imm Gran Pct Auto 0.3 % (0.0-0.4); Lymphocytes Absolute Auto 2.6 X10*3/uL (1.2-4.9); Lymphocytes Percent Auto 25.7 % (20-40); Mean Corpuscular HGB Conc 31.8 g/dl (31.0-35.0); Mean Corpuscular Hemoglobin 26.4 pg (27.0-33.0); Monocytes Absolute Auto 0.9 X10*3/uL (0.1-1.2); Monocytes Percent Auto 9.5 % (2-11); Neutrophils Absolute Auto 5.7 x10*3/uL (2.0-8.3); Neutrophils Percent Auto 56.9 % (45-73); Platelet Count 258 X10*3/uL (160-400); Red Blood Count 5.19 X10*6/uL (4.20-5.50); Red Cell Distribution Width 13.8 % (11.0-16.0); White Blood Count 9.9 X10*3/uL (4.8-10.8)
--- OUTSIDE RECORDS SUMMARY | 2024-07-06 12:59 | XMS_ITS | Clinical Summary ---
Author Organization [facility] ity Address [address] [place] [address] Care Team Providers Care Director Consumer Name Role Phone Unavailable Primary Care Provider [...] Documents on File Type Date Recorded Patient Tugboat Captain Expl anation Health Care Decision (hx) 03/13/2022 KAYLAN BARRETO DIRECTIVE
[2024-07-06 13:04] LABS: Alanine Aminotransferase 12 U/L (0-31); Alkaline Phosphatase 84 U/L (39-117); Anion Gap 13 (12-20); Aspartate Amino Transferase 19 U/L (5-31); Bilirubin Total 0.6 mg/dL (0.0-1.0); Blood Urea Nitrogen 15 mg/dL (9-16); Calcium 9.8 mg/dL (8.4-10.2); Carbon Dioxide 28 mmol/L (22-29); Chloride 105 mmol/L (96-108); Estimated Glomerular Filt Rate > 60; Glucose Random 78 mg/dL (60-115); Potassium 4.2 mmol/L (3.3-5.1); Sodium 142 mmol/L (135-145); Total Protein 8.7 g/dL (6.5-8.0)
[2024-07-06 13:25] LABS: Free T4 (Free Thyroxine) 1.45 ng/dL (0.71-1.85); TSH reflex Free T4 0.33 uIU/mL (0.32-4.0)
[2024-07-07 14:08] LABS: Triiodothyronine T3 Free 3.3 pg/mL (2.3-4.2); Triiodothyronine T3 Total 102 ng/dL (76-181)
[2024-07-10 00:40] LABS: Iodine, Serum/Plasma 106 mcg/L (52-109)
[2024-07-11 12:29] LABS: Triiodothyronine T3 Reverse 29 ng/dL (8-25)
== END 2024-07-06 09:56 | disposition home or self-care (01) ==
LOC: HO.LAB 09:55
DX: I10 Essential (primary) hypertension (principal); E03.9 Hypothyroidism, unspecified; S72.002D Fracture of unspecified part of neck of left femur, subsequent encounter for closed fracture with routine healing; X58.XXXD Exposure to other specified factors, subsequent encounter; R94.6 Abnormal results of thyroid function studies; F41.9 Anxiety disorder, unspecified
CPT/HCPCS: 36415; 80053; 83789; 84439; 84443; 84480; 84481; 84482; 85025; 96127; 99212

== ENCOUNTER 2024-11-02 09:52 | Outpatient (REF) | payer MEDICARE, SELFPAY ==
[2024-11-02 10:10] LABS: MANUAL DIFF FLAG NO
[2024-11-02 10:29] LABS: Hematocrit 43.2 % (37.0-47.0); Hemoglobin 13.7 g/dl (12.0-16.0); Imm Gran Abs Auto 0.03 X10*3/uL (0.00-0.03); Imm Gran Pct Auto 0.3 % (0.0-0.4); Lymphocytes Absolute Auto 2.4 X10*3/uL (1.2-4.9); Mean Corpuscular HGB Conc 31.7 g/dl (31.0-35.0); Mean Corpuscular Hemoglobin 26.7 pg (27.0-33.0); Mean Corpuscular Volume 84.0 fL (80.0-98.0); NRBC Abs Auto 0.000 X10*3/uL (0.0-0.012); NRBC Pct Auto 0.0 /100WBC (0.0-0.2); Platelet Count 253 X10*3/uL (160-400); Red Blood Count 5.14 X10*6/uL (4.20-5.50); White Blood Count 10.5 X10*3/uL (4.8-10.8)
--- OUTSIDE RECORDS SUMMARY | 2024-11-02 10:53 | XMS_ITS | Clinical Summary ---
Author Organization [facility] ity Address [address] [place] [address] Care Team Providers Care Business Developer Name Role Phone Unavailable Primary Care Provider [...] nts (1 - 1-dose 75+ series) 2021 Falls Risk Assessment 02/01/2022 Hepatitis C Screening 02/01/2022 Osteoporosis Screening (Bone Density Screening) 02/01/2022 Social Influencers of Health Screening 02/01/2022 Depression Screening 03/01/2024 COVID-19 Vaccine ( - 2023-2 5 season) 2024 Influenza Vaccine (#1) 2024 HIB Vaccines Aged Out No longer [...] Documents on File Type Date Recorded Patient Global Head Advertiser Solutions Expl anation Health Care Decision (hx) 03/13/2022 KAYLAN BARRETO DIRECTIVE
[2024-11-02 11:07] LABS: Alanine Aminotransferase 11 U/L (0-31); Albumin Level 4.1 g/dL (3.5-5.0); Alkaline Phosphatase 92 U/L (39-117); Anion Gap 14 (12-20); Aspartate Amino Transferase 19 U/L (5-31); Blood Urea Nitrogen 12 mg/dL (9-16); Calcium 9.7 mg/dL (8.4-10.2); Carbon Dioxide 28 mmol/L (22-29); Chloride 105 mmol/L (96-108); Cholesterol 179 mg/dL (<200); Estimated Glomerular Filt Rate > 60; HDL Cholesterol 45 mg/dL (>40); Potassium 4.6 mmol/L (3.3-5.1); Sodium 142 mmol/L (135-145); Total Protein 8.7 g/dL (6.5-8.0); Triglycerides 165 mg/dL (<150)
[2024-11-02 11:27] LABS: Free T4 (Free Thyroxine) 1.37 ng/dL (0.71-1.85)
== END 2024-11-02 09:53 | disposition home or self-care (01) ==
LOC: HO.LAB 09:52
DX: I10 Essential (primary) hypertension (principal); E03.9 Hypothyroidism, unspecified; F41.9 Anxiety disorder, unspecified
CPT/HCPCS: 36415; 80053; 80061; 82306; 84439; 84443; 85025

== ENCOUNTER 2024-11-13 09:55 | Outpatient (AMB) | payer MEDICARE, SELFPAY ==
--- NOTE | 2024-11-13 10:00 | A.OFFPC_ITS ---
Vital Signs 11/13/24 10:04 Height 5 ft 2 in Weight 137 lb 5.568 oz BMI 25.1 BP 132/80 Blood Pressure Location Lt brachial Position Sitting Pulse 71 Pulse Source Pulse Oximeter Pulse Oximetry (%) 97 Oxygen Delivery Method Room Air Intake Visit Reasons: JEWELS KENRICK/6 mo follow up Short Haul Driver Required: No Accompanied by: Self / Same As Patient Allergies No Known Allergies Allergy (Verified 11/13/24 10:46) Medication List - Last Reconciled 11/13/24 by Eusebio Kamara MD atenolol 50 mg PO BID levothyroxine (Synthroid) 100 mcg PO QAM lorazepam 0.25 mg (1/2 x 0.5 mg) PO BEDTIME PRN Tobacco use date assessed: 11/13/24 Fall risk assessment: No Falls in past year Last assessed Fall Risk: 11/13/24 Dental Screening Dental Screen Date: 11/13/24 Did you have a dental visit in the last 12 months?: No Did you have a dental problem in the last 6 months where you did not have access to dental care?: No Was dental information given to patient?: No HPI JEWELS KENRICK/6 mo follow up HPI Details Patient comes in today for her follow up visit - is transferring over from Dr. Umanzor, who retired from the practice a few months ago States that she feels okay except for increased itching of both eyes often for the past few weeks She denies any eye pain or significant blurring or change in her vision so she is suspecting that they are just due to allergies She denies any headaches or dizziness Denies any chest pains, no SOB No nausea/vomiting, no abdominal pain No change in bowel habits noted Adds that she has also been experiencing frequent pain in her left hip and over her left thigh/femur for the past few months - notes that the pain usually bothers her when she is on her feet and walking but does not affect her as much when she is sitting down Relates that she suffered a hip Fx that required surgery at [facility] a couple of years ago in 2022 but she does not want to go back to see orthopedics there Needs a couple of her Rx refilled She had her follow up labs done a couple of weeks ago - to discuss her results [facility] Medical History (Updated 11/13/24 @ 11:15 by Eusebio Kamara MD) Vitamin D deficiency Mixed hyperlipidemia Acquired hypothyroidism Essential hypertension Hypothyroidism Hypertension Surgical History History of cataract surgery History of thumb surgery Hx of elbow surgery Family History Father No problems noted. Mother No problems noted. Social History Housing: House Alcohol intake: never Patient Tobacco Use Status: Former Tobacco user Tobacco use type: Cigarette e-Cigarette/Vaping Use: Never Used Second Hand Smoke Exposure: Yes service: No Current occupational status: retired Cognitive needs: Yes (Cane) Hearing needs: No Vision needs: No Questionnaire PHQ-9 Over the last 2 weeks, how often have you been bothered by any of the following problems? Depression Screening Interpretation: Negative Depression Screening Done: Yes Source: Developed by Drs. Vinnie Garcia, Kathleen Carrillo, Matthew Loeng and colleagues, with an educational franklyn from [employer]. Thrive Questionnaire Date Thrive assessed: 07/06/24 I am a: Patient What is your living situation today?: I have a steady place to live Within the past 12 months, did the food you bought not last and you didn't have the money to get more?: I choose not to answer this question Within the past 12 months, did you worry whether your food would run out before you got money to buy more?: I choose not to answer this question Do you have trouble paying for medicines?: I choose not to answer this question Do you have trouble getting transportation to medical appointments?: I choose not to answer this question Do you have trouble paying your heating and electricity bill?: I choose not to answer this question Do you have trouble taking care of your child, family member or friend?: I choose not to answer this question Do you have trouble with day-to-day activities such as bathing, preparing meals, shopping, managing finances, etc.?: I choose not to answer this question Are you currently unemployed and looking for a job?: I choose not to answer this question Are you interested in more education?: I choose not to answer this question Please select the resources that you would like help with: None Currently or been in a relationship where the following occur: I choose not to answer THRIVE Score: 0 AUDIT C Alcohol Use Questionnaire (AUDIT-C) 1. How often do you have a drink containing alcohol?: Never 3. How often do you have six or more drinks on one occasion?: Never Total Score: 0 Score Reviewed/Action Taken: No CHAPITO-7 AMB Questionnaire CHAPITO-7 Date CHAPITO - 7 assessed: 07/06/24 Source: Developed by Drs. Vinnie Garcia, Kathleen Carrillo, Matthew Leong and colleagues, with an educational franklyn from [employer]. Review of Systems Const Denies chills, Denies fatigue, Denies fever(s) and Denies headache(s) Eyes Reports itchy eyes ENT Denies dysphagia, Denies dizziness, Denies otalgia, Denies headache(s), Denies neck pain, Denies odynophagia and Denies sore throat Card Denies chest pain, Denies palpitations and Denies dyspnea Resp Denies chest congestion, Denies cough and Denies dyspnea GI Denies abdominal pain, Denies constipation, Denies dysphagia, Denies heartburn, Denies diarrhea, Denies nausea, Denies odynophagia and Denies vomiting Denies difficulty voiding, Denies nocturia, Denies dysuria and Denies urinary urgency Musc Denies back pain, Reports arthralgias (increased pain in her left hip, mostly when she is walking - see HPI) and Denies neck pain Skin/Breast Denies rash Neuro Denies dizziness and Denies headache(s) Endo Denies fatigue and Denies palpitations Aller/Immun Reports itchy eyes Physical exam (Primary Care) Vital Signs: Last Vital Signs Pulse 71 11/13/24 10:04 BP 132/80 11/13/24 10:04 Pulse Ox 97 11/13/24 10:04 Oxygen Delivery Method Room Air 11/13/24 10:04 BMI result Body Mass Index 25.1 Tobacco/Smoking Status: Tobacco use Status Tobacco use date assessed 11/13/24 11/13/24 10:12 Patient Tobacco Use Status Former Tobacco user 11/13/24 10:01 Tobacco use type Cigarette 11/13/24 10:01 e-Cigarette/Vaping Use Never Used 11/13/24 10:01 Depression Screening Interpretation: Negative Thrive Assessment: Date of Thrive Assessment Date Thrive assessed 07/06/24 11/13/24 10:01 Currently or been in a relationship where the following occur: I choose not to answer Const General: no acute distress and alert HENMT Ears: TM's normal bilaterally and EAC's normal Throat: Yes posterior oropharynx normal and Yes tonsils normal (no TP congestion) Eyes Other: (+) erythema of the conjunctiva bilaterally Neck Neck: Yes supple and No lymphadenopathy Thyroid: Thyroid normal Resp Auscultation: clear to auscultation bilaterally, no rales and no wheezes Cardio Rate: regular rate Rhythm: regular rhythm Heart sounds: no murmurs GI Palpation (GI): Soft to palpation and nontender Auscultation: normal bowel sounds General: Yes no CVA tenderness Back/Spine/Pelvis Back: no CVA tenderness Thoracic/Lumbar Spine: No lumbar spinal tenderness Skin General skin exam: no rashes or lesions noted Rashes: no rashes Extrem General: Yes no clubbing, cyanosis or edema Left lower extremity: hip/thigh Details: tenderness Location: of the hip and of the proximal upper leg Results Reviewed Results Reviewed: Laboratory Tests 11/02/24 10:09 WBC 10.5 Hgb 13.7 Hct 43.2 Plt Count 253 Sodium 142 Potassium 4.6 Creatinine 0.76 Estimated GFR > 60 Fasting Glucose 84 Calcium 9.7 AST 19 ALT 11 Triglycerides 165 H Cholesterol 179 LDL Cholesterol, Calc 101 H HDL Cholesterol 45 25-OH Vitamin D Total 29.6 L TSH 0.76 Free T4 1.37 Coding Level of Care Code Est Pt Level 4 (67023) Diagnoses Essential hypertension I10 Acquired hypothyroidism E03.9 Mixed hyperlipidemia E78.2 Vitamin D deficiency E55.9 Allergic conjunctivitis of both eyes H10.13 Laterality: bilateral Left hip pain M25.552 Anxiety F41.9 Assessment & Plan Assessment & Plan (1) Essential hypertension: Code(s): I10 - Essential (primary) hypertension Category: Medical Plan: Reinforced low sodium diet - goal is systolic BP of at least 130 to 140 mm or less Continue Atenolol 50 mg BID - Rx refilled (2) Acquired hypothyroidism: Code(s): E03.9 - Hypothyroidism, unspecified Category: Medical Plan: Her TFTs were normal on her recent labs Continue Levothyroxine 100 mcg QD Will recheck her labs again in 6 months - will order these at her next follow up appt (3) Mixed hyperlipidemia: Code(s): E78.2 - Mixed hyperlipidemia Category: Medical Plan: Results of her labs done a couple of weeks ago reviewed and discussed with patient - her LDL cholesterol has improved from previous but her serum TG level has gone up Reinforced low cholesterol diet Will have patient recheck her labs and fasting lipids again in 6 months - will order labs at her next follow up appt in 3 months (4) Vitamin D deficiency: Code(s): E55.9 - Vitamin D deficiency, unspecified Category: Medical Plan: She is advised that her Vitamin D level is slightly low on her recent labs Patient states that she normally takes Multivitamins that is the equivalent of Centrum Silver but she has been forgetting to take this often lately and will try to take it more consistently Will recheck her Vitamin D level as well in the next 6 months for follow up (5) Allergic conjunctivitis: Code(s): H10.10 - Acute atopic conjunctivitis, unspecified eye Category: Medical Qualifiers: Laterality: bilateral Qualified Code(s): H10.13 - Acute atopic conjunctivitis, bilateral Plan: Will start patient on Olopatadine 0.2% eye drops to apply 1 drop into each eye QD PRN (6) Left hip pain: Code(s): M25.552 - Pain in left hip Category: Medical Plan: (+) Hx of left intertrochanteric Fx, S/P surgical repair at [facility] in 2022 Patient reports experiencing increased pain in her left hip area, mostly with standing or walking, over the past few months States that she does not wish to go back to orthopedics at [place] Will send her for updated x-rays of her left hip VIRAJ for further evaluation Will also try referring her to [facility] Orthopedics for further evaluation and ma nagement of her increasing left hip pain (7) Anxiety: Code(s): F41.9 - Anxiety disorder, unspecified Category: Medical Plan: Continue Lorazepam 0.25 mg Q HS PRN Plan Follow up in 3 months Orders: Orders XR hip LT min 2V Today M25.552 - Pain in left hip Referrals Orthopedics Referral M25.552 - Pain in left hip Medications: New olopatadine 0.2% 1 drp ophthalmic (eye) DAILY PRN 5 mL 0RF itching Changed From atenolol 50 mg PO BID 180 tabs 1RF To atenolol 50 mg PO BID 180 tabs 1RF 90 days From levothyroxine (Synthroid) 100 mcg PO QAM 90 tabs 4RF E03.9 - Hypothyroidism, unspecified To levothyroxine (Synthroid) 100 mcg PO QAM 90 tabs 3RF 90 days E03.9 - Hypothyroidism, unspecified
[2024-11-13 10:04] VITALS: BP 132/80; PULSE 71; O2SAT 97; BMI 25.1
--- OUTSIDE RECORDS SUMMARY | 2024-11-13 12:19 | XMS_ITS | Clinical Summary ---
Author Organization [facility] ity Address [address] [place] [address] Care Team Providers Care Primer Assembler Name Role Phone Unavailable Primary Care Provider [...] Documents on File Type Date Recorded Patient Ceo Na Expl anation Health Care Decision (hx) 03/13/2022 KAYLAN BARRETO DIRECTIVE
== END 2024-11-13 11:08 | disposition home or self-care (01) ==
LOC: HO.HMCH 09:56
PROVIDERS: PCP Internal Medicine; Visit Provider Internal Medicine
DX: I10 Essential (primary) hypertension (principal); E03.9 Hypothyroidism, unspecified; E78.2 Mixed hyperlipidemia; E55.9 Vitamin D deficiency, unspecified; H10.13 Acute atopic conjunctivitis, bilateral; M25.552 Pain in left hip; F41.9 Anxiety disorder, unspecified

== ENCOUNTER → 2024-11-13 09:55 | Outpatient (BNVA) | payer MEDICARE, SELFPAY | PROVIDERS: PCP Internal Medicine; Visit Provider Internal Medicine | DX: I10 Essential (primary) hypertension (principal); E03.9 Hypothyroidism, unspecified; E78.2 Mixed hyperlipidemia; E55.9 Vitamin D deficiency, unspecified; H10.13 Acute atopic conjunctivitis, bilateral; M25.552 Pain in left hip; F41.9 Anxiety disorder, unspecified | CPT/HCPCS: 99212 ==

== ENCOUNTER 2024-12-20 10:32 | Outpatient (REF) | payer MEDICARE, SELFPAY ==
--- NOTE | ~2024-12-20 | XR_ITS ---
EXAMINATION: XR HIP 2 OR MORE VIEWS LEFT HISTORY: M25.552 - Pain in left hip COMPARISON: There are no prior studies available for comparison. FINDINGS: Two views of the left hip are submitted. The bones are osteopenic. The patient is status post internal fixation of the hip with a compression screw and intramedullary tony. No new fracture is seen. There is no dislocation. There is severe osteoarthritis with joint space narrowing. A curvilinear lucency in the femoral head may represent avascular necrosis. There is mild articular collapse. The soft tissues are unremarkable. XR/XR hip LT min 2V IMPRESSION: There is post internal fixation of the left hip. 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 Electronically signed by: Vinnie Vyas MD 12/20/2024 11:04 AM EDT
--- OUTSIDE RECORDS SUMMARY | 2024-12-20 13:21 | XMS_ITS | Clinical Summary ---
Author Organization [facility] ity Address [address] [place] [address] Care Team Providers Care Welding Equipment Repairer Supervisor Name Role Phone Unavailable Primary Care Provider [...] Documents on File Type Date Recorded Patient Carpentry Specialist Expl anation Health Care Decision (hx) 03/13/2022 KAYLAN BARRETO DIRECTIVE
== END 2024-12-20 10:33 | disposition home or self-care (01) ==
LOC: HO.XRAY 10:32
PROVIDERS: PCP Internal Medicine; Visit Provider Internal Medicine
DX: M25.552 Pain in left hip (principal)
CPT/HCPCS: 73502

== ENCOUNTER → 2024-12-20 10:39 | Outpatient (BNV) | payer MEDICARE, SELFPAY | PROVIDERS: PCP Internal Medicine; Visit Provider Radiology Diagnostic Radiology | DX: M25.552 Pain in left hip (principal) | CPT/HCPCS: 73502 ==

== ENCOUNTER 2025-02-06 08:29 | Outpatient (REF) | payer MEDICARE, SELFPAY ==
--- NOTE | ~2025-02-06 | XR_ITS ---
EXAMINATION: XR PELVIS CLINICAL INFORMATION: M25.559 - Pain in unspecified hip COMPARISON: Right hip x-ray December 20, 2024 TECHNIQUE: AP view of the pelvis. FINDINGS: Again seen is a short intramedullary nail in the left femur with a distal interlocking screw that is incompletely imaged. There is also a lag screw traversing the femoral head and neck. There is severe superior left hip joint space narrowing with moderate flattening of the femoral head and subchondral sclerosis. Finding is probably increased. Marginal osteophyte is seen at the superior lateral femoral head. The right hip joint demonstrates mild to moderate axial joint space narrowing. No other abnormalities are seen. XR/XR pelvis 1-2V IMPRESSION: ORIF left hip with moderate flattening of the superior left femoral head, possibly increased since x-ray December 20, 2024. There is also stable severe narrowing of the superior left hip joint. There is mild to moderate axial narrowing of the right hip joint. Electronically signed by: Matthew Rg MD 02/06/2025 01:47 PM [facility]AVEN
== END 2025-02-06 08:30 | disposition home or self-care (01) ==
LOC: HO.HOSX 08:29
PROVIDERS: Visit Provider Physician Assistant
DX: M70.62 Trochanteric bursitis, left hip (principal)
CPT/HCPCS: 72170

== ENCOUNTER 2025-02-06 13:32 | Outpatient (AMB) | payer MEDICARE, SELFPAY ==
--- NOTE | 2025-02-06 13:49 | A.OFFVIS_ITS ---
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 Patient had left hip gamma nail ORIF by Dr. Kong in [facility] on 03/10/2022. Patient reports ongoing pain for 6 months . She notices that her pain is on the outer aspect of her hip ny curent srews are in, advil tyl dose not help pain only happens when walking Allergies No Known Allergies Allergy (Verified 02/06/25 13:49) HPI Comments Details: History of Present Illness The patient is a 79-year-old female presenting for evaluation of left lateral hip pain. She reports the onset of lateral-sided hip pain over the past 6 months without any new injury or trauma. She has tried Advil and Tylenol without relief and uses a cane or walker to assist with ambulation. Her surgical history is significant for a left hip intramedullary nail placement in 2022 for a hip fracture, performed by Dr. Kong at [facility]. Following the surgery, she attended rehab, was discharged home, and was reportedly doing very well until the recent onset of pain. [facility] Medical History (Updated 02/06/25 @ 15:16 by Becky Mendiola PA-C) Vitamin D deficiency Mixed hyperlipidemia Acquired hypothyroidism Essential hypertension Hypothyroidism Hypertension Surgical History History of cataract surgery History of thumb surgery Hx of elbow surgery Family History Father No problems noted. Mother No problems noted. Social History Housing: House Alcohol intake: never Patient Tobacco Use Status: Former Tobacco user Tobacco use type: Cigarette e-Cigarette/Vaping Use: Never Used Second Hand Smoke Exposure: Yes service: No Current occupational status: retired Cognitive needs: Yes (Cane) Hearing needs: No Vision needs: No Review of Systems Narrative Review of Systems - Musculoskeletal: Reports left lateral hip pain for the past six months. - Denies any new injury or trauma. Physical Exam Exam Exam: Procedure - Procedure: Greater trochanteric hip bursa injection. - Informed Consent: The patient consented to move forward with the injection. Physical Exam - Musculoskeletal: Examination of the left hip reveals limitations with internal and external rotation. - There is tenderness to palpation of the greater trochanteric bursa. - Strength is 5/5 with resisted hip flexion, knee extension, abduction, and adduction. - The patient is able to perform a straight leg raise. Vital Signs: BMI result Body Mass Index 25.1 Const General: cooperative, healthy appearing and no acute distress Resp Effort & Inspection: normal respiratory effort and able to speak in complete sentences Extrem Other: Left hip: Limitations with internal and external rotation. Tenderness to palpation over the greater trochanteric bursa. 5/5 strength with resisted hip flexion, knee extension, abduction, and abduction. Able to perform straight leg raise. NVI. Psych Appearance: grossly normal Mental Status: mental status grossly normal Attitude: cooperative Office Procedures AMB Joint Injection/Aspiration Joint Injection/Aspiration Primary Site: Left Trochanteric Bursa Prep: site was prepped using aseptic technique, ethochloride spray was applied and injection warnings given Injected: 40 mg of, Decadron, with 3 mL of, 1% plain Lidocaine, 0.25% Bupivacaine and Other (Into the left hip greater trochanteric bursa) Approach Used: other (Lateral) Procedure: The patient tolerated the procedure well, but had some pain with the injection and there was some relief with the local anesthesia Coding 33620 - Glenohumeral/Tronchanteric Bursa/Intraarticular Procedure code (CPT) selection complete Assessment & Plan Assessment & Plan (1) Greater trochanteric bursitis of left hip: Code(s): M70.62 - Trochanteric bursitis, left hip Category: Medical Plan The patient was offered a cortisone injection in left hip greater trochanteric bursa. The patient was explained the risks, benefits, and alternatives to receiving this injection. After receiving consent for the injection, the patient had the procedure done while in the office today. The patient tolerated the procedure well with no complications. The risks, benefits, and alternatives to a corticosteroid injection were discussed with the patient, including the potential benefits of decreased inflammation and pain, improved function, and diagnostic value. Risks were reviewed, including post-injection flare, skin or fat atrophy, transient facial flushing, temporary elevation in blood glucose, bruising, and rare but serious complications such as infection, tendon weakening or rupture, and cartilage damage with repeated injections. Procedure-related discomfort and possible vasovagal symptoms were also explained. Alternatives were reviewed, including NSAIDs, physical therapy, activity modification, bracing, ice/heat, weight management, hyaluronic acid injections when appropriate, PRP or other orthobiologics, oral steroids, surgery depending on pathology, and observation. The patient verbalized understanding and elected to proceed. After receiving consent for the injection, the patient had the procedure done while in the office today. The patient tolerated the procedure well with no complications. Follow-up will be PRN, or sooner if needed X-rays of the pelvis which were obtained while in the office today and were reviewed by me, Becky Mendiola PA-C, revealed left hip intramedullary nail with left hip osteoarthritis. Orders: Orders XR pelvis 1-2V Today M25.559 - Pain in unspecified hip Coding Level of Care Code New Pt Level 4 (16900) Complex visit Add On G2211 Diagnoses Greater trochanteric bursitis of left hip M70.62 CPT Codes Coding - Joint 7: 86545 - Glenohumeral/Tronchanteric Bursa/Intraarticular ([id number])
[2025-02-06 13:56] VITALS: BMI 25.1
--- OUTSIDE RECORDS SUMMARY | 2025-02-06 19:08 | XMS_ITS | Clinical Summary ---
Author Organization [facility] ity Address [address] [place] [address] Care Team Providers Care Sales Promotion Representative Name Role Phone Unavailable Primary Care Provider [...] Depression Screening 03/01/2024 COVID-19 Vaccine ( - 2024-2 6 season) 2024 Influenza Vaccine (#1) 2024 HIB [...] Documents on File Type Date Recorded Patient Automotive Designer Expl anation Health Care Decision (hx) 03/13/2022 KAYLAN BARRETO DIRECTIVE
== END 2025-02-06 14:39 | disposition home or self-care (01) ==
LOC: HO.HOS 13:33
PROVIDERS: PCP Internal Medicine; Visit Provider Physician Assistant
DX: M70.62 Trochanteric bursitis, left hip (principal)
CPT/HCPCS: 20610; 99204

== ENCOUNTER → 2025-02-06 13:34 | Outpatient (BNV) | payer MEDICARE, SELFPAY | PROVIDERS: Visit Provider Radiology Diagnostic Radiology | DX: M16.0 Bilateral primary osteoarthritis of hip (principal) | CPT/HCPCS: 72170 ==